=== PATIENT | male | born 1965 | race Caucasian/White ===

== ENCOUNTER 2016-10-28 11:59 | Emergency (ER) | payer MEDICAID ==
[~2016-10-28 11:59] MED LIST: ACT30 PO; CHOLESTEROL MED PO; GOOD SENSE ASPI81 M3 PO; HUMALOG100 U/ML SQ; LANTI SQ; LANTUS SOLOS100 U/M1 SQ; METFORMIN HCL1000 MG PO; MEVACOR40 MG PO; NIFEDIPINE ER30 MG PO; PRINIVIL20 MG PO; ZOF4 PO
[2016-10-28 13:26] LABS: BASOPHIL % 0.4 % (0-2); PLATELET COUNT 315 x10^3mcL (130-400); RED CELL DISTRIBUTION WIDTH 13.8 % (11.5-14.5)
[2016-10-28 13:33] LABS: CALCIUM 8.1 mg/dL (8.5-10.1); CARBON DIOXIDE 27.2 mmol/L (21-32); CHLORIDE SERUM 106 mmol/L (98-107); CREATININE SERUM 0.8 mg/dL (0.7-1.3); GFR1 > 60 mL/min; GLUCOSE SERUM 222 mg/dL (74-106); POTASSIUM SERUM 3.8 mmol/L (3.5-5.1); SODIUM SERUM 139 mmol/L (136-145)
[2016-10-28 14:29] VITALS: BP 154/98
== END 2016-10-28 14:29 | disposition home or self-care (01) ==
LOC: ED 11:59
PROVIDERS: Emergency Medicine
DX: E11.649 Type 2 diabetes mellitus with hypoglycemia without coma (principal); I10 Essential (primary) hypertension
CPT/HCPCS: 36415; 82962; Q0092